=== PATIENT | male | born 1985 | race Caucasian/White ===

== ENCOUNTER 2018-05-09 21:05 | Emergency (ER) | payer MEDICAID, OTHER ==
[~2018-05-09] VITALS: Ht 167.6 cm; Wt 68.2 kg
[2018-05-09 21:15] VITALS: Ht 167.6 cm; Wt 68.2 kg
--- NOTE | 2018-05-10 02:28 | ERD ---
ER Documentation Chief Complaint Chief Complaint n/v states started about 20 mins ago. denies ap HPI 33-year-old male with a history of bipolar disorder presenting with nausea and vomiting prior to arrival. Currently he denies any abdominal pain and his nausea has resolved. He is stating that he felt like someone was following him which is why he came to the ER. Currently he is denying any other symptoms. He is taking all of his psychiatric meds as prescribed. ROS All systems reviewed and are negative except as per history of present illness. Allergies Allergies: Coded Allergies: No Known Allergy (Unverified , 05/10/18) PMhx/Soc History of Surgery: Yes (right arm) Hx Miscellaneous Medical Probl: Yes (bipolar) Hx Alcohol Use: No Hx Substance Use: Yes (marijuana) Hx Tobacco Use: No Smoking Status: Current every day smoker FmHx Family History: No diabetes Physical Exam Vitals Vital Signs Date Temp Pulse Resp B/P (MAP) Pulse Ox O2 O2 Flow FiO2 Time Delivery Rate 05/09/18 98.7 118 18 118/75 99 21:15 (89) Physical Exam Const: No acute distress Head: Atraumatic Eyes: Normal Conjunctiva ENT: Normal External Ears, Nose and Mouth. Neck: Full range of motion. No meningismus. Resp: Clear to auscultation bilaterally Cardio: Regular rate and rhythm, no murmurs Abd: Soft, non tender, non distended. Normal bowel sounds Skin: No petechiae or rashes Back: No midline or flank tenderness Neur: Awake and alert Psych: Somewhat paranoid, no HI or SI. No hallucinations Procedures/MDM Patient is presenting after an episode of vomiting, now asymptomatic. He clearly has a psychiatric disorder but I do not think he is a danger to himself or others and is not gravely disabled. We were able to arrange transportation to a motel of the patient's choice as that is where he was heading prior to arrival. No evidence of acute surgical abdomen. Doubt acute infection. Patient is stable for discharge. Return precautions given. Departure Diagnosis: Primary Impression: Bipolar disorder Active/Remission status: remission status unspecified Qualified Codes: F31.9 - Bipolar disorder, unspecified Additional Impressions: Encounter for medical screening examination Nausea and vomiting Vomiting type: unspecified Vomiting Intractability: non-intractable Qualified Codes: R11.2 - Nausea with vomiting, unspecified Condition: Stable EKMEKJIAN,NELLIE R. MD May 10, 2018 02:28
[2018-05-10 03:15] VITALS: BP 135/67; PULSE 98; RESP 16
== END 2018-05-10 03:15 | disposition home or self-care (01) ==
LOC: FTE 21:05 → E/R 05-10 03:15
DX: F31.9 Bipolar disorder, unspecified (principal); F17.210 Nicotine dependence, cigarettes, uncomplicated
CPT/HCPCS: 99282